=== PATIENT | male | born 1955 | race Two or more races ===

== ENCOUNTER → 2018-05-21 | Outpatient (CLI) | payer OTHER ==
[~2018-05-21] VITALS: Ht 167.6 cm; Wt 68.9 kg
== END | disposition home or self-care (01) ==
LOC: Rad HDHVI 08:09
PROVIDERS: ATTEND Internal Medicine Cardiovascular Disease
DX: R06.02 Shortness of breath (principal)
CPT/HCPCS: 78452; 93017; 93306; 96374; A9500

== ENCOUNTER 2019-10-02 05:54 | Day surgery (SDC) | payer OTHER ==
[~2019-10-02] VITALS: Ht 167.6 cm; Wt 70.3 kg
[2019-10-02 06:24] LABS: Basophils # (auto) 0 uL; Basophils % (auto) 0.3 % (0.0-2.0); Eosinophils # (auto) 0.1 uL; Eosinophils % (auto) 1.6 % (0.0-7.0); Hematocrit 44.1 % (41.0-53.0); Hemoglobin 15.1 g/dL (13.5-17.5); Lymphocytes # (auto) 1.3 uL; Lymphocytes % (auto) 28.2 % (10.0-50.0); Mean Corpuscular Hemoglobin 28.9 pg (28.0-32.0); Mean Corpuscular Hgb Conc. 34.2 g/dL (32.0-36.0); Mean Corpuscular Volume 84.5 fL (80.0-100.0); Monocytes # (auto) 0.5 uL; Monocytes % (auto) 9.9 % (0.0-12.0); Neutrophils # (auto) 2.7 uL; Nucleated Red Blood Cells % 0.2 %; Platelet Count (auto) 135 10^3/uL (140-450); Red Blood Cells 5.22 10^6/uL (4.5-5.90); Red Cell Distribution Width 13.7 % (11.8-14.3); White Blood Cell 4.5 10^3/uL (4.4-10.8)
[2019-10-02 06:41] LABS: INR 1.01 (0.9-1.15); Partial Thromboplastin Time 27.4 sec (23.64-32.05)
[2019-10-02] MEDS ORDERED: SODIUM CHLORIDE LOCK 10 ML ONE (07:23)
[2019-10-02] MEDS ORDERED: diphenhdrAMINE HCL 50 MG/1 ML VL ONE (07:24)
[2019-10-02] MEDS: MIDAZOLAM HCL 5 MG/ML-1ML VIAL ONE ×2 (07:56→08:04)
[2019-10-02] MEDS: fentaNYL CITRATE 100 MCG/2 ML VL ONE ×2 (07:56→08:04)
[2019-10-02 08:50] VITALS: BP 124/79
== END 2019-10-02 09:01 | disposition home or self-care (01) ==
LOC: SUR 05:54
PROVIDERS: ATTEND Internal Medicine Gastroenterology
DX: K63.5 Polyp of colon (principal); K57.30 Diverticulosis of large intestine without perforation or abscess without bleeding; K64.8 Other hemorrhoids
CPT/HCPCS: 36415; 45378; 85025; 85610; 85730; J1200; J2250; J3010; J7030; 99152